=== PATIENT | male | born 1940 | race Native Hawaiian/Other Pacific Islander ===

== ENCOUNTER 2022-04-09 12:39 | Emergency (ER) | payer MEDICARE ==
[2022-04-09 12:55] VITALS: BP 224/96
--- NOTE | 2022-04-09 13:39 | XRay Report ---
CHEST 2 VIEWS INDICATION / CLINICAL INFORMATION: dizziness. COMPARISON: None available. FINDINGS: SUPPORT DEVICES: None. HEART / MEDIASTINUM: No significant abnormality. LUNGS / PLEURA: No significant pulmonary or pleural abnormality. No pneumothorax. ADDITIONAL FINDINGS: No significant additional findings. IMPRESSION: 1. No acute findings. Signer Name: Rojas Enrique MD Signed: 04/09/2022 1:34 PM Workstation Name: [id number]
--- NOTE | 2022-04-09 13:54 | Cat Scan Report ---
CT BRAIN: 04/09/2022 INDICATION / CLINICAL INFORMATION: dizziness. COMPARISON: None available. FINDINGS: BRAIN/INTRACRANIAL STRUCTURES: Unenhanced CT images of the brain demonstrate no evidence of acute abn ormality. Ventricles and sulci are prominent in size, consistent with age-related atrophic change. There is no evidence of acute ischemic injury, hemorrhage, or mass. There are no abnormal extra-axial fluid collections. 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 IMPRESSION: No acute abnormality. Age-related changes. All CT scans at this location are performed using dose reduction to ALARA by means of automated expos ure control. Signer Name: Isaias Manuel MD Signed: 04/09/2022 1:49 PM Workstation Name: [id number]
[2022-04-09 15:07] LABS: Albumin 4.2 g/dL (3.9-5); Calcium 9.1 mg/dL (8.4-10.2)
[2022-04-09 15:10] LABS: Hematocrit 30.8 % (35.5-45.6); Hemoglobin 10.4 gm/dl (11.8-15.2); Mean Corpuscular HGB Conc 34 % (32-34); Mean Corpuscular Volume 93 fl (84-94); Red Blood Count 3.31 M/mm3 (3.65-5.03); Red Cell Distribution Width 13.8 % (13.2-15.2)
[2022-04-09 15:27] LABS: Chol/HDL Ratio 6.88 %
[2022-04-09 15:38] LABS: Platelet Count 220 K/mm3 (140-440)
--- NOTE | 2022-04-10 13:19 | Electrocardiograph Report ---
[facility] Test Date: 2022-04-09 Test Time: 14:20:11 Pat Name: ERIBERTO RUSSELL Department: Room: Gender: M Mechanical Design Engineer: RUSLAN : 1940 Requested By: CHRISTOPHER MARQUEZ Order Number: [id number] Reading MD: Perico Meneses Measurements Intervals [place] Rate: 57 P: 64 VA: 182 QRS: 2 QRSD: 109 T: 123 QT: 439 QTc: 430 Interpretive Statements Sinus rhythm LVH with secondary repolarization abnormality No previous ECG available for comparison Electronically Signed On 04-10-2022 13:19:09 EDT by Percio Meneses
== END 2022-04-09 15:06 | disposition left against medical advice (07) ==
LOC: ED 12:39
DX: I10 Essential (primary) hypertension (principal); Z53.21 Procedure and treatment not carried out due to patient leaving prior to being seen by health care provider; R42 Dizziness and giddiness
CPT/HCPCS: 36415; 70450; 71046; 80053; 80061; 84484; 85027; 93005